=== PATIENT | male | born 1955 | race Caucasian/White ===

== ENCOUNTER 2021-12-18 13:30 | Observation (INO) | payer MEDICARE ==
[2021-12-23] MEDS ORDERED: Tranexamic Acid 1,000 MG/10 ML VIAL ONE ×2 (11:09→15:56)
[2021-12-23] MEDS ORDERED: Neomycin-Polymyxin 1 ML AMP ONE (11:10)
[2021-12-23] MEDS ORDERED: Lidocaine 1% MPF 2 ML VIAL ONE (11:19)
[2021-12-23] MEDS ORDERED: ceFAZolin 2 GM/Dextrose 50 ML IVPB ONE (11:27)
[2021-12-23] MEDS ORDERED: Midazolam HCl 2 mg/2 ml Vial ONE (12:07)
[2021-12-23] MEDS ORDERED: Ropivacaine 0.5% HCl/PF (150 MG/30 ML VIAL) ONE (12:07)
[2021-12-23] MEDS ORDERED: Fentanyl 100 MCG/2 ML VIAL ONE ×5 (12:08→16:16)
[2021-12-23] MEDS ORDERED: Fentanyl 100 MCG/2 ML VIAL SLOW IVP SCH (12:15)
[2021-12-23] MEDS ORDERED: Midazolam HCl 2 mg/2 ml Vial SLOW IVP SCH (12:15)
[2021-12-23] MEDS ORDERED: Morphine 2 MG/ML VIAL SLOW IVP PRN (13:02)
[2021-12-23] MEDS ORDERED: Ondansetron ODT 4 MG TAB PO PRN (13:02)
[2021-12-23] MEDS ORDERED: Zolpidem Tartrate 5 MG TAB PO PRN (13:02)
[2021-12-23] MEDS ORDERED: Cepastat Lozenges 1 LOZ PO PRN (13:02)
[2021-12-23] MEDS ORDERED: HYDROcodone/Acetaminophen 10/325 mg Tablet PO PRN (13:02)
[2021-12-23] MEDS ORDERED: Milk Of Magnesia 30 ML UDCUP PO PRN (13:02)
[2021-12-23] MEDS ORDERED: Ondansetron PF 4 MG/2 ML Vial IVP PRN (13:02)
[2021-12-23] MEDS ORDERED: Colchicine 0.6 MG TAB PO PRN (13:08)
[2021-12-23] MEDS ORDERED: Tranexamic Acid 1,000 MG in Sodium Chloride 0.9% 100 ML IVPB SCH ×2 (13:15→16:00)
[2021-12-23] MEDS ORDERED: PROPOFOL 20 ML ONE (13:16)
[2021-12-23] MEDS ORDERED: PHENYLEPHRINE-NS 100 MCG/ML 10 ML SYRINGE ONE ×2 (13:19→14:58)
[2021-12-23] MEDS ORDERED: Ondansetron PF 4 MG/2 ML Vial ONE (13:20)
[2021-12-23] MEDS ORDERED: Lidocaine 1% PF 5 ML VIAL ONE ×2 (13:20→15:12)
[2021-12-23] MEDS ORDERED: Dexamethasone 4 mg/ml Vial ONE (13:20)
[2021-12-23] MEDS ORDERED: Rocuronium Bromide 10 MG/ML (10ML VIAL) ONE (13:20)
[2021-12-23] MEDS ORDERED: ePHEDrine Sulfate 50 MG/10 ML VIAL ONE (14:14)
[2021-12-23] MEDS ORDERED: Glycopyrrolate 0.2 MG/ML 5 ML SYRINGE ONE (15:00)
[2021-12-23] MEDS: Sodium Chloride 0.9% 1,000 ML IV SCH (18:00)
[2021-12-23] MEDS: ceFAZolin 2 GM/Dextrose 50 ML 2 GM in Premix Bag 1 BAG IVPB SCH (18:01)
[2021-12-23] MEDS: Morphine 4 MG/ML VIAL SLOW IVP PRN ×2 (18:12→22:26)
[2021-12-23] MEDS: Icosapent Ethyl 1 GM CAPSULE PO SCH (18:13)
[2021-12-23] MEDS: Gabapentin 400 MG CAP PO SCH ×2 (18:13→20:19)
[2021-12-23 18:41] VITALS: BMI 31.8
[2021-12-23] MEDS: Carvedilol 25 MG TAB PO SCH (20:03)
[2021-12-23] MEDS: HYDROcodone/Acetaminophen 10/325 mg Tablet PO PRN (20:03)
[2021-12-23] MEDS: Lisinopril 10 MG TAB PO SCH (20:04)
[2021-12-23] MEDS ORDERED: Senokot S 8.6-50 MG TAB PO SCH (21:00)
[2021-12-23] MEDS ORDERED: Atorvastatin Calcium 40 MG TAB PO SCH (21:00)
[2021-12-23] MEDS: Ketorolac Tromethamine 30 MG/ML VIAL IVP SCH (21:25)
[2021-12-23] MEDS: Famotidine 20 MG TAB PO SCH (21:28)
[2021-12-24] MEDS: ceFAZolin 2 GM/Dextrose 50 ML 2 GM in Premix Bag 1 BAG IVPB SCH (00:14)
[2021-12-24] MEDS: Sodium Chloride 0.9% 1,000 ML IV SCH (00:15)
[2021-12-24] MEDS: HYDROcodone/Acetaminophen 10/325 mg Tablet PO PRN ×3 (00:15→11:43)
[2021-12-24 04:31] LABS: #Monocytes 0.9 10x3/uL (0.0-1.1); #Neutrophils 6.9 10x3/uL (1.5-8.4); %Basophils 0.1 % (0.0-2.0); %Lymphocytes 10.2 % (18.0-47.0); %Monocytes 10.2 % (0.0-10.0); %Neutrophils 78.8 % (40.0-75.0); Hemoglobin 11.9 g/dL (13.5-17.5); Mean Corpuscular HGB CONC 34.3 g/dL (32.0-36.0); Mean Corpuscular Hemoglobin 32.6 pg (27.0-33.0); Mean Corpuscular Volume 95.1 fl (81.2-95.1); Mean Platelet Volume 9.1 fl (7.4-10.4); Platelet Count 167 10x3/uL (150-450); RBC Distribution Width 13.8 % (11.5-14.5); Red Blood Cell (RBC) Count 3.65 10x6/uL (4.32-5.72); White Blood Cell (WBC) Count 8.7 10x3/uL (3.5-10.5)
[2021-12-24] MEDS: Ketorolac Tromethamine 30 MG/ML VIAL IVP SCH (04:33)
[2021-12-24 04:45] LABS: Anion Gap 16 mmol/L (10-20); BUN (Urea Nitrogen) 27 mg/dL (8.4-25.7); Calc. Creatinine Clearance 72 mL/min (70-130); Calcium 8.9 mg/dL (7.8-10.44); Carbon Dioxide 22 mmol/L (23-31); Chloride 105 mmol/L (98-107); Glucose 133 mg/dL (80-115); Magnesium 1.8 mg/dL (1.6-2.6); Potassium 4.7 mmol/L (3.5-5.1); Sodium 138 mmol/L (136-145)
[2021-12-24] MEDS: Gabapentin 400 MG CAP PO SCH (08:44)
[2021-12-24] MEDS: Carvedilol 25 MG TAB PO SCH (08:45)
[2021-12-24] MEDS: Famotidine 20 MG TAB PO SCH (08:45)
[2021-12-24] MEDS: Icosapent Ethyl 1 GM CAPSULE PO SCH (08:45)
[2021-12-24] MEDS: Lisinopril 10 MG TAB PO SCH (08:45)
[2021-12-24] MEDS ORDERED: Polyethylene Glycol 3350 17 GM Packet PO SCH (09:00)
[2021-12-24] MEDS ORDERED: Aspirin 81 mg Enteric Coated Tablet PO SCH (09:00)
[2021-12-24] MEDS ORDERED: Allopurinol 300 MG TAB PO SCH (09:00)
[2021-12-24] MEDS ORDERED: Venlafaxine HCl XR 75 MG CAP PO SCH (09:00)
[2021-12-24] MEDS ORDERED: metFORMIN XR 500 MG TAB PO SCH (09:00)
[2021-12-24] MEDS ORDERED: Clopidogrel Bisulfate 75 MG TAB PO SCH (09:00)
[2021-12-24] MEDS ORDERED: Empagliflozin 25 MG TAB PO SCH (09:00)
[2021-12-24] MEDS ORDERED: Senokot S 8.6-50 MG TAB PO SCH (09:00)
[2021-12-24 11:52] VITALS: BP 123/60; TEMP 97.5
[2021-12-24] MEDS: Morphine 4 MG/ML VIAL SLOW IVP PRN (14:00)
== END 2021-12-24 14:59 | disposition home or self-care (01) ==
LOC: CSHERHOLD 12-23 10:36 → INTOOBSV 12-23 10:36 → CSHTELE 12-23 16:39
PROVIDERS: ADMIT Orthopaedic Surgery; ATTEND Orthopaedic Surgery
PROC: 0SRB0JZ Replacement of Left Hip Joint with Synthetic Substitute, Open Approach (ICD-10-PCS; principal; 2021-12-23)
DX: M16.12 Unilateral primary osteoarthritis, left hip (principal); M87.9 Osteonecrosis, unspecified; I12.9 Hypertensive chronic kidney disease with stage 1 through stage 4 chronic kidney disease, or unspecified chronic kidney disease; N18.2 Chronic kidney disease, stage 2 (mild); E78.5 Hyperlipidemia, unspecified; I25.10 Atherosclerotic heart disease of native coronary artery without angina pectoris; Z95.1 Presence of aortocoronary bypass graft; F41.9 Anxiety disorder, unspecified; F32.A Depression, unspecified; M10.9 Gout, unspecified; Z87.891 Personal history of nicotine dependence; Z79.899 Other long term (current) drug therapy; Z79.82 Long term (current) use of aspirin; Z79.01 Long term (current) use of anticoagulants
CPT/HCPCS: 27130; 73502; 80048; 82962 ×2; 83735; 85025; 94760 ×2; 96374; 97110; 97116; 97139 ×4; 97530; 97535; C1713 ×2; G0378; 36415; 36416; J0690; J1100; J1885; J2250; J2270; J2405; J2704; J2795; J3010; J7050

== ENCOUNTER 2021-12-18 13:36 | Outpatient (CLI) | payer MEDICARE ==
[2021-12-18 15:03] LABS: Hemoglobin 14.3 g/dL (13.5-17.5); Mean Corpuscular HGB CONC 33.8 g/dL (32.0-36.0); Mean Corpuscular Hemoglobin 33.2 pg (27.0-33.0); Mean Corpuscular Volume 98.1 fl (81.2-95.1); Mean Platelet Volume 9.3 fl (7.4-10.4); Platelet Count 154 10x3/uL (150-450); RBC Distribution Width 13.6 % (11.5-14.5); Red Blood Cell (RBC) Count 4.31 10x6/uL (4.32-5.72); White Blood Cell (WBC) Count 3.7 10x3/uL (3.5-10.5)
[2021-12-18 15:23] LABS: INR-International Normal Ratio 1.1; Prothrombin Time 11.4 sec (9.5-12.1)
[2021-12-18 15:24] LABS: Anion Gap 13 mmol/L (10-20); BUN (Urea Nitrogen) 24 mg/dL (8.4-25.7); Calc. Creatinine Clearance 0 mL/min (70-130); Calcium 9.2 mg/dL (7.8-10.44); Carbon Dioxide 25 mmol/L (23-31); Chloride 105 mmol/L (98-107); Glucose 121 mg/dL (80-115); Potassium 4.3 mmol/L (3.5-5.1); Sodium 139 mmol/L (136-145)
[2021-12-19 12:17] LABS: SARS-CoV-2 PCR by NAA Not Detected (NotDetected)
== END 2021-12-18 13:37 | disposition home or self-care (01) ==
LOC: CSHLAB 13:36
PROVIDERS: ATTEND Emergency Medicine
DX: Z01.818 Encounter for other preprocedural examination (principal); Z20.822 Contact with and (suspected) exposure to COVID-19
CPT/HCPCS: 80048; 85027; 85610; 87081; 93005; 93010; U0003; U0005